=== PATIENT | male | born 1995 | race Two or more races ===

== ENCOUNTER → 2025-06-12 | Outpatient (CLI) | payer OTHER ==
[2025-06-12 11:30] LABS: Hematocrit 45.8 % (41.0-53.0); Hemoglobin 15.8 g/dL (13.5-17.5); Mean Corpuscular Hemoglobin 28.7 pg (28.0-32.0); Mean Corpuscular Volume 83.2 fL (80.0-100.0); Nucleated Red Blood Cells % 0.1 %
[2025-06-12 12:10] LABS: Alkaline Phosphatase 84 U/L (46-116); Anion Gap 11 (5-15); Calcium 9.8 mg/dL (8.7-10.4); Carbon Dioxide 27 mmol/L (20-31); Chloride 106 mmol/L (98-107); Glucose 89 mg/dL (74-106); Potassium 4.1 mmol/L (3.5-5.1); Sodium 144 mmol/L (136-145); Total Protein 7.7 g/dL (5.7-8.2); Triglycerides 85 mg/dL (< 150)
[2025-06-12 12:12] LABS: Bilirubin, Total 0.7 mg/dL (0.2-1.0); Cholesterol 158 mg/dL (< 200)
[2025-06-12 12:34] LABS: Hepatitis B Surface Antigen Negative (Negative); Hepatitis C Antibody Negative (Negative)
[2025-06-12 12:35] LABS: Alanine Aminotransferase 71 U/L (7-40); Albumin 4.8 g/dL (3.2-4.8); HDL Cholesterol 36 mg/dL (40-59)
[2025-06-12 15:46] LABS: BUN/Creatinine Ratio 7.3 (10.0-20.0); Blood Urea Nitrogen 7 mg/dL (9-23)
[2025-06-14 03:07] LABS: Chlamydia Trachomatis, NAA Negative (Negative); Neisseria gonorrhoeae, NAA Negative (Negative)
== END | disposition home or self-care (01) ==
LOC: LAB 10:09
PROVIDERS: ATTEND Internal Medicine Hematology & Oncology
DX: E66.9 Obesity, unspecified (principal)
CPT/HCPCS: 36415; 80053; 80061; 80074; 82306; 84443; 85025; 86703; 86780